=== PATIENT | female | born 1960 | race Caucasian/White ===

== ENCOUNTER 2021-08-13 20:10 | Inpatient (IN) | payer MEDICARE, OTHER ==
[~2021-08-13] VITALS: Ht 160 cm; Wt 103.0 kg
[~2021-08-13 20:10] MED LIST: ADVAIR 100-501 EACH INH; IBUPROFEN600 MG PO; LISINOPRIL10 MG PO; MICROZIDE12.5 MG PO; NAPROXEN250 MG PO; NORCO 5-325 TA1 EACH PO; PEPCID40 MG PO; PROAIR HFA8.5 GM INH; PROTONIX40 MG PO; PROZAC20 MG PO; PROZAC40 MG PO; TENORMIN 25 MG25 MG PO; Voltaren Gel 1 % TOP; ZYRTEC10 M3 PO
[2021-08-13 21:20] LABS: HEMOGLOBIN 12.4 gm/dl (12.3-15.3); RED BLOOD COUNT 4.91 M/UL (4.00-5.10); WHITE BLOOD COUNT 19.3 K/UL (4.5-11.0)
[2021-08-13 21:35] LABS: BUN/CREATININE RATIO 25 (0-10)
[2021-08-14] MEDS ORDERED: AMLODIPINE BESYL5 MG PO (01:53)
[2021-08-14] MEDS ORDERED: MONTELUKAST SOD10 MG PO (01:54)
[2021-08-14] MEDS ORDERED: FENOFIBRATE160 MG PO (01:55)
[2021-08-14] MEDS ORDERED: GLUCOPHAGE 500500 MG PO (01:56)
[2021-08-14] MEDS ORDERED: SYMBICORT 80-10.2 GM INH (01:57)
[2021-08-14] MEDS ORDERED: VITAMIN D21250 MCG PO (01:57)
[2021-08-14] MEDS ORDERED: PROVENTIL HFA6.7 GM INH (01:58)
[2021-08-14 07:40] LABS: HEMOGLOBIN 11.7 gm/dl (12.3-15.3); RED BLOOD COUNT 4.56 M/UL (4.00-5.10)
[2021-08-14 07:43] LABS: WHITE BLOOD COUNT 13.2 K/UL (4.5-11.0)
[2021-08-14 08:17] LABS: BUN/CREATININE RATIO 18 (0-10)
== END 2021-08-14 15:25 | disposition home or self-care (01) | DRG 74 ==
LOC: ER1 20:10 → CDU 23:13 → 3 EAST 23:13
PROVIDERS: Family Medicine; Internal Medicine; ADMIT Internal Medicine
DX: E11.43 Type 2 diabetes mellitus with diabetic autonomic (poly)neuropathy (principal); K56.609 Unspecified intestinal obstruction, unspecified as to partial versus complete obstruction; K31.84 Gastroparesis; K21.9 Gastro-esophageal reflux disease without esophagitis; Z20.822 Contact with and (suspected) exposure to COVID-19; J45.909 Unspecified asthma, uncomplicated; I10 Essential (primary) hypertension; Z90.49 Acquired absence of other specified parts of digestive tract; Z98.890 Other specified postprocedural states; Z90.710 Acquired absence of both cervix and uterus
CPT/HCPCS: 51702; 80048; 80053; 81001; 82962; 83690; 85025; 87086; 93005; 96374; 96375; 96376; 99285; C9113; G0378; J2270; J2405; J7030; Q9967; U0002

== ENCOUNTER 2021-08-18 15:07 | Inpatient (IN) | payer MEDICARE, OTHER ==
[~2021-08-18] VITALS: Ht 160 cm; Wt 100.3 kg
[~2021-08-18 15:07] MED LIST changes: +AMLODIPINE BESYL5 MG PO; +FENOFIBRATE160 MG PO; +GLUCOPHAGE 500500 MG PO; +HYDROCHLOROTH12.5 MG PO; -MICROZIDE12.5 MG PO; +MONTELUKAST SOD10 MG PO; +PROVENTIL HFA6.7 GM INH; +SYMBICORT 80-10.2 GM INH; +VITAMIN D21250 MCG PO
[2021-08-18 15:55] LABS: RED BLOOD COUNT 5.31 M/UL (4.00-5.10); WHITE BLOOD COUNT 12.8 K/UL (4.5-11.0)
[2021-08-18 15:56] LABS: HEMOGLOBIN 13.7 gm/dl (12.3-15.3)
[2021-08-18 16:25] LABS: BUN/CREATININE RATIO 17 (0-10)
[2021-08-19 07:29] LABS: HEMOGLOBIN 11.4 gm/dl (12.3-15.3); RED BLOOD COUNT 4.58 M/UL (4.00-5.10); WHITE BLOOD COUNT 9.5 K/UL (4.5-11.0)
[2021-08-19 07:45] LABS: BUN/CREATININE RATIO 12 (0-10)
[2021-08-20 11:38] LABS: BUN/CREATININE RATIO 8 (0-10)
[2021-08-21 07:37] LABS: BUN/CREATININE RATIO 7 (0-10)
== END 2021-08-21 11:16 | disposition home or self-care (01) | DRG 337 ==
LOC: ER1 15:07 → CDU 21:46 → M/S 21:46
PROVIDERS: Physician Assistant Medical; Surgery; ADMIT Internal Medicine
PROC: 0DNB4ZZ Release Ileum, Percutaneous Endoscopic Approach (ICD-10-PCS; principal; 2021-08-19 11:30)
DX: K56.609 Unspecified intestinal obstruction, unspecified as to partial versus complete obstruction (principal); I10 Essential (primary) hypertension; E11.43 Type 2 diabetes mellitus with diabetic autonomic (poly)neuropathy; Z20.822 Contact with and (suspected) exposure to COVID-19; K31.84 Gastroparesis; K44.9 Diaphragmatic hernia without obstruction or gangrene; J45.909 Unspecified asthma, uncomplicated; K21.9 Gastro-esophageal reflux disease without esophagitis; Z90.49 Acquired absence of other specified parts of digestive tract; Z79.4 Long term (current) use of insulin; Z90.710 Acquired absence of both cervix and uterus; Z88.2 Allergy status to sulfonamides; Z88.8 Allergy status to other drugs, medicaments and biological substances
CPT/HCPCS: 36415; 74018; 80048; 80053; 81001; 82962; 83605; 83690; 85025; 85610; 94664; 94760; 96372; 96374; 96375; 96376; 99285; J1170; J1650; J2250; J2270; J2405; J2704; J2710; J3010; J7030; J7120; Q9967; U0002

== ENCOUNTER → 2021-09-09 | Outpatient (CLI) | payer MEDICARE, OTHER | LOC: KOH-I 10:11 | DX: M72.2 Plantar fascial fibromatosis (principal) | CPT/HCPCS: 73610; 73630 ==